=== PATIENT | female | born 1970 | race Caucasian/White ===

== ENCOUNTER → 2016-09-14 | Outpatient (CLI) | payer OTHER ==
[~2016-09-14] MED LIST: ASPIRIN EC81 MG PO; BACTRIM D.S. TAB1 EA PO; CHANTIX1 MG PO; CYMBALTA60 MG PO; KEFLEX500 MG PO; LEVAQUIN750 MG PO; NORCO 5-325 TA1 EACH PO; PRILOSEC40 MG PO
== END ==
LOC: KOH-I 12:07
DX: J30.9 Allergic rhinitis, unspecified (principal); J42 Unspecified chronic bronchitis; E55.9 Vitamin D deficiency, unspecified; M54.5 Low back pain; G47.33 Obstructive sleep apnea (adult) (pediatric)
CPT/HCPCS: 71020

== ENCOUNTER 2020-06-11 00:05 | Emergency (ER) | payer OTHER ==
[2020-06-11 00:53] LABS: HEMOGLOBIN 14.3 gm/dl (12.3-15.3); RED BLOOD COUNT 5.15 M/UL (4.00-5.10); WHITE BLOOD COUNT 8.2 K/UL (4.5-11.0)
[2020-06-11 01:07] LABS: BUN/CREATININE RATIO 20 (0-10)
== END 2020-06-11 04:10 | disposition home or self-care (01) ==
LOC: ER1 00:05
PROVIDERS: Family Medicine
DX: R10.2 Pelvic and perineal pain (principal); E11.9 Type 2 diabetes mellitus without complications; Z90.49 Acquired absence of other specified parts of digestive tract; F17.210 Nicotine dependence, cigarettes, uncomplicated
CPT/HCPCS: 36415; 80053; 81001; 83690; 85025; 96374; 96375; 99284; J1885; J2405; Q9967